=== PATIENT | male | born 1945 | race Caucasian/White ===

== ENCOUNTER 2016-12-27 10:43 | Day surgery (SDC) | payer MEDICARE, BC ==
[2016-12-24 08:28] VITALS: BMI 30.7
[~2016-12-27 10:43] MED LIST: LACTATED RINGERS 1,000 ML IV SCH; LIDOCAINE 1% 20 ML VIAL (10MG/ML) FOR IV START INTRADERMA PRN
[2016-12-27 11:18] VITALS: RESP 16
[2016-12-27] MEDS ORDERED: GLYCOPYRROLATE 0.2 MG/ML 2 ML VIAL ONE (11:49)
[2016-12-27] MEDS ORDERED: LIDOCAINE 1% INJ 10MG/ML (20 ML MDV) ONE (11:49)
[2016-12-27] MEDS ORDERED: PROPOFOL 10 MG/ML 20 ML VIAL IV ONE (11:49)
--- NOTE | 2016-12-27 12:22 | P.PCN ---
Date of Procedure: 12/27/16 Preoperative Diagnosis: Postoperative Diagnosis: Procedure(s) Performed: Procedure: Esophagogastroduodenoscopy and biopsy. Preoperative diagnosis: Reflux symptoms and history of Lim's esophagus. Postoperative diagnosis: 1. Moderately sized hiatal hernia with LA grade B distal esophagitis. 2. Lim's esophagus. 3. Minimal gastritis and duodenitis. 4. Biopsies obtained from the duodenum antrum and the Lim's segment. Preparation and sedation: Was provided by anesthesia. Brief clinical history: The patient is a 71-year-old male who I have evaluated in the office recently regarding heartburn and reflux symptoms. The patient has history of Lim's esophagus and his last evaluation was 2-3 years ago. He has no alarm symptoms. This evaluation is to assess for esophagitis and rule out other pathology and obtain a biopsies from the Lim's segment. Procedure: With the patient on his left lateral decubitus position and after informed consent and adequate sedation, I passed the Olympus-GIF 160 video upper endoscope through the cricopharyngeus down the esophagus. The branden-GE junction was around 34-35 cm from the incisors and there was short broad erosions distal to that level consistent with LA grade B distal esophagitis. There were no strictures. The endoscope was then passed through a 5 cm segment of Lim's esophagus. A moderately sized hiatal hernia was then encountered then the endoscope was advanced to the rest of the stomach which was insufflated with air and inspected in detail including the retroflex view in the cardia. There was minimal mottling and erythema in the antrum but no ulcers or erosions. Pyloric channel did not show any ulcers. Duodenal bulb, post bulbar area and descending duodenum showed mild erythema. I obtained biopsies from the duodenum, antrum and the Lim's segment of the esophagus then the endoscope was withdrawn. The patient tolerated the procedure well Plan: The patient was reassured. Will await biopsy results. He will continue with daily PPI which was recently prescribed and he will continue to follow antireflux diet and measures. Further plans based on his course and biopsy results. I will keep you updated on his progress. Implants: Indications for Procedure: Operative Findings: Description of Procedure:
[2016-12-27 12:52] VITALS: BP 111/70; PULSE 64
== END 2016-12-27 13:01 | disposition home or self-care (01) ==
LOC: ORWHC2ENDO 10:43
DX: K22.70 Barrett's esophagus without dysplasia (principal); K21.0 Gastro-esophageal reflux disease with esophagitis; K44.9 Diaphragmatic hernia without obstruction or gangrene; K29.70 Gastritis, unspecified, without bleeding; K29.80 Duodenitis without bleeding; I10 Essential (primary) hypertension; E78.5 Hyperlipidemia, unspecified; Z95.1 Presence of aortocoronary bypass graft; E07.9 Disorder of thyroid, unspecified; Z79.82 Long term (current) use of aspirin; Z79.899 Other long term (current) drug therapy
CPT/HCPCS: 88305; 88342; 43239; J2001; J2704

== ENCOUNTER → 2021-10-22 | Outpatient (CLI) | payer MEDICARE, BC ==
--- NOTE | 2021-10-23 07:12 | US ---
EXAMINATION TYPE: US kidneys/renal and bladder DATE OF EXAM: 10/22/2021 COMPARISON: NONE CLINICAL HISTORY: N28.1 RENAL CYST. Patient states having a hx of right renal cyst. EXAM MEASUREMENTS: Right Kidney: 11.4 x 5.0 x 5.6 cm Left Kidney: 10.9 x 5.0 x 4.8 cm Right Kidney: Lateral lower cystic lesion = 1.2 x 1.3 x 1.0 cm Left Kidney: No hydronephrosis or masses seen Bladder: Anechoic, distended Bilateral Jets seen There is no evidence for hydronephrosis at this point in time. No nephrolithiasis is seen. No solid masses are identified. The urinary bladder is anechoic. Bilateral ureteral jets are seen. IMPRESSION: Simple cyst right kidney.
== END | disposition home or self-care (01) ==
LOC: RADUSWWP 15:08
PROVIDERS: ATTEND Urology
DX: N28.1 Cyst of kidney, acquired (principal)
CPT/HCPCS: 76770

== ENCOUNTER → 2021-11-20 | Outpatient (CLI) | payer MEDICARE, BC ==
--- NOTE | 2021-11-20 14:39 | NM ---
EXAMINATION TYPE: NM bone scan whole body DATE OF EXAM: 11/20/2021 COMPARISON: NONE HISTORY: C 61 Delayed whole-body scanning was performed following the injection of 23.1 mCi Tc 99m MDP. Images acq uired 3 hours post injection. FINDINGS: Uptake within the feet, ankles, knees, hands and wrists, elbows, shoulders, costovertebral angles in the thoracic spine is likely degenerative. Uptake in the maxilla and mandible is likely due to period ontal disease. Soft tissue uptake is normal. No abnormal increased or decreased uptake to suggest met astatic disease. Uptake in the cervical spine, lumbar spine likely due to degenerative disc disease. IMPRESSION: Metastatic disease is not evident.
--- NOTE | 2021-11-21 16:20 | MR ---
EXAMINATION TYPE: MR Prostate wo/w con DATE OF EXAM: 11/20/2021 12:29 PM COMPARISON: Bone scan 11/20/2021. CLINICAL INDICATION:Male, 76 years old with history of C61 prostate ca; TECHNIQUE: Multi-planar, multi-sequence imaging of the pelvis is performed prior to and following the uncomplicated administration of bolus intravenous gadolinium. CONTRAST: 10 Gadavist Interpretive Criteria: PI-RADS v2.1 SERUM PSA: 13.1 on 09/06/2021. SURGICAL PATHOLOGY: Adenocarcinoma on multiple core biopsies A-K. FINDINGS: Prostatic dimensions (L-R x A-P x S-I): 5.2 x 3.3 x 4.2 cm. CENTRAL GLAND (Central and Transition Zones/CZ+TZ): Heterogenous appearing hypertrophic stromal nodules, without suspicious lesion. Median lobe hypertrop hy with protrusion into the base of the bladder. (PI-RADS 2) PERIPHERAL ZONE (PZ): Confluent low T2/high DWI signal predominantly in the left of the gland measuring 3.0 x 2.0 x 2.4 cm. Which extends along the capsule at least 1.7 cm with capsular bulging. No obvious extension outside the capsule. (PI-RADS 5) Additional area in the right peripheral zone apex measuring up to 1.2 x 1.2 x 0.9 cm extends along th e capsule at least 1.2 cm. No definitive extracapsular extension. (PI-RADS 4) Areas of intrinsic high T1 signal seen likely sequela prior biopsy. SEMINAL VESICLES (SV): Symmetric and unremarkable. PERIPROSTATIC TISSUES: Unremarkable. LYMPH NODES: No enlarged pelvic lymph node. REMAINING PELVIS: Bladder wall is within normal limits given distention. No abnormal free or organized intrapelvic fluid collection. No pathologic bowel dilation or mural thickening. Bilateral fat filled inguinal hernias. OSSEOUS STRUCTURES: Low T1 signal round area within the left superior pubic ramus measuring 7 mm. IMPRESSION: 1. PI-RADS 5 , 3.0 cm lesion involving the posterior peripheral zone predominantly in the left cross ing midline and extending along the capsule with capsular bulging. No definitive extension to the cap ericka. 2. PI-RADS 4 , 1.3 cm lesion right peripheral zone apex along the capsule. No obvious extracapsular extension. 3. Left superior pubic ramus focus of abnormal signal concerning for osseous metastatic disease. No obvious uptake on same day bone scan 11/20/2021. Follow-up imaging. 4. No lymphadenopathy.
== END | disposition home or self-care (01) ==
LOC: RADNMMAIN 09:42
PROVIDERS: ATTEND Radiology Radiation Oncology
DX: C61 Malignant neoplasm of prostate (principal)
CPT/HCPCS: 72197; 78306; A9503; A9585

== ENCOUNTER → 2021-11-25 | Outpatient (CLI) | payer MEDICARE, BC ==
--- NOTE | 2021-11-25 20:19 | CT ---
EXAMINATION TYPE: CT abdomen pelvis wo/w con CT DLP: 2148.8 mGycm, Automated exposure control for dose reduction was used. DATE OF EXAM: 11/25/2021 7:07 PM COMPARISON: MR prostate 11/20/2021. Bone scan 11/20/2021. CLINICAL INDICATION:Male, 76 years old with history of C61 PROSTATE CANCER; TECHNIQUE: Axial CT of the abdomen and pelvis. Sagittal and coronal reformats were created on a [employer] workstation. Contrast used:100ml mL of Isovue 300 with IV Contrast, Oral contrast used: with Oral Contrast FINDINGS: LOWER CHEST: Sternotomy wires are present. ABDOMEN LIVER: Unremarkable GALLBLADDER AND BILE DUCTS: The gallbladder is surgically absent. PANCREAS: Unremarkable. SPLEEN: Unremarkable. ADRENAL GLANDS: Unremarkable. KIDNEYS AND URETERS: No evidence of hydronephrosis or renal calculus. Right renal cyst. PELVIS BLADDER: Unremarkable REPRODUCTIVE: Prostate gland measures up to 4.8 cm in transverse dimension. No periprosthetic soft ti ssue mass. ABDOMEN & PELVIS STOMACH AND BOWEL: There is mild wall thickening of the stomach suggested posteriorly measuring up to 4.8 cm in thickness on sagittal series 11 image 82. Small moderate hiatal hernia. No evidence of bow el obstruction. Appendix is normal. PERITONEUM: No evidence of pneumoperitoneum or free fluid. VASCULATURE: No evidence of aortic aneurysm. Mild atherosclerosis changes of the arterial vasculature . MUSCULOSKELETAL: No suspicious osseous lesion. Focus of marrow abnormality on prostate exam 11/20/[address] correlate. No acute osseous abnormalities LYMPH NODES: No gross evidence for lymphadenopathy. SOFT TISSUE/ABDOMINAL WALL: Bilateral fat filled inguinal hernia. IMPRESSION: 1. No CT correlate for left superior pubic ramus marrow abnormality seen on 11/20/2021 MRI prostate. Attention on follow-up imaging. 2. Thickening of the gastric wall most pronounced posteriorly measuring up to 4.8 cm. Further evaluat ion is recommended along with direct visualization differential includes malignancy and gastritis. 3. Small hiatal hernia.
== END | disposition home or self-care (01) ==
LOC: RADCTMAIN 16:59
PROVIDERS: ATTEND Radiology Radiation Oncology
DX: C61 Malignant neoplasm of prostate (principal)
CPT/HCPCS: 82565; 84520; 74178; 36415; Q9967

== ENCOUNTER → 2021-12-02 | Outpatient (CLI) | payer MEDICARE, BC ==
[2021-12-02 14:57] LABS: Basophils # (A) 0.05 X 10*3/uL (0.00-0.10); Basophils % (A) 0.9 %; Eosinophils # (A) 0.48 X 10*3/uL (0.04-0.35); Eosinophils % (A) 8.8 %; HCT 45.6 % (39.6-50.0); HGB 15.7 g/dL (13.0-17.0); Immature Grans, Automated 0.2 %; Lymphocytes # (A) 1.47 X 10*3/uL (0.90-5.00); Lymphocytes % (A) 26.9 %; MCH 31.6 pg (27.0-32.0); MCHC 34.4 g/dL (32.0-37.0); MCV 91.8 fL (80.0-97.0); Mean Platelet Volume 12.3 fL (9.5-12.2); Monocytes # (A) 0.45 X 10*3/uL (0.20-1.00); Monocytes % (A) 8.2 %; NRBC Per 100 WBC 0 /100 WBCS (0.0-0.0); Platelet Count 133 X 10*3/uL (140-440); RBC 4.97 X 10*6/uL (4.40-5.60); RDW 13.1 % (11.5-14.5); WBC 5.46 X 10*3/uL (4.50-10.00)
[2021-12-02 15:08] LABS: Anion Gap 8.3 mmol/L (10.00-18.00); BUN/Creat Ratio 16.54 Ratio (12.00-20.00); Blood Urea Nitrogen 17.2 mg/dL (9.0-27.0); Calcium 9.4 mg/dL (8.7-10.3); Carbon Dioxide 28.5 mmol/L (20.0-27.5); Non-African American GFR(CKD) 69.9 (60.0-200.0); Potassium 4.4 mmol/L (3.5-5.5)
[2021-12-02 17:12] LABS: Appearance,Urine Clear (Clear); Bilirubin,Urine Negative (Negative); Blood,Urine Negative (Negative); Color,Urine Yellow (Yellow); Ketones,Urine Negative (Negative); Nitrite,Urine Negative (Negative); PH, Urine 5.5 (5.0-8.0); Specific Gravity,Urine 1.005 (1.001-1.030); Urobilinogen,Urine 0.2 (0.2,1.0)
== END | disposition home or self-care (01) ==
LOC: LABPAT 10:16
PROVIDERS: ATTEND Urology
DX: Z01.812 Encounter for preprocedural laboratory examination (principal); C61 Malignant neoplasm of prostate
CPT/HCPCS: 80048; 81003; 85025; 87086

== ENCOUNTER 2024-05-23 07:53 | Day surgery (SDC) | payer MEDICARE, BC, OTHER ==
[2024-05-21 10:35] VITALS: BMI 27.8
[2024-05-23 08:22] VITALS: TEMP 97.2
[2024-05-23] MEDS: IV FLUID CONTINUATION 1,000 ML IV ONE (08:23)
[2024-05-23] MEDS: LACTATED RINGERS 1,000 ML BAG IV STA (08:29)
[2024-05-23] MEDS ORDERED: PROPOFOL 10 MG/ML 20 ML VIAL IV ONE (08:56)
[2024-05-23] MEDS ORDERED: LIDOCAINE 1% INJ 10MG/ML (20 ML MDV) ONE (08:56)
--- NOTE | 2024-05-23 09:20 | P.PCN ---
Date of Procedure: 05/23/24 Procedure(s) Performed: BRIEF HISTORY: Patient is a 79-year-old, pleasant, white female scheduled for an upper endoscopy as a part of evaluation of longstanding history of GERD and Lim's esophagus.. Last EGD was in 2017. She has been on omeprazole 20 mg daily. PROCEDURE PERFORMED: Esophagogastroduodenoscopy with biopsy. PREOPERATIVE DIAGNOSIS: Longstanding history of GERD/Lim's esophagus. IV sedation per anesthesia. PROCEDURE: After informed consent was obtained, the patient was brought into the endoscopy unit. IV sedation was administered by Anesthesia under continuous monitoring. Initially the Olympus GIF-140 video endoscope was inserted into the mouth. Esophagus intubated without any difficulty. It was gradually advanced into the stomach and duodenum and carefully examined. The bulb and the second part of the duodenum appeared normal. The scope at this time was withdrawn to t he stomach, adequately insufflated with air, and upon careful examination, mucosa of the antrum, body, cardia and the fundus appeared normal. The scope was then withdrawn into the esophagus. Moderate sized hiatal hernia. The GE junction was located at 35 cm from the incisors. This is a long segment of Lim's esophagus extending from 25 to 35 cm from the incisors and multiple biopsies were done from this area. The rest of the esophagus appeared normal. There were no erosions or ulcerations seen and the patient tolerated the procedure well. IMPRESSION: 1. Long segment Lim's esophagus extending from 25 to 35 cm from the incisors status post multiple biopsies. 2. Moderate size hiatal hernia. RECOMMENDATIONS: The findings of this examination were discussed with the patient as well as his family. He was advised to follow with the biopsy results. Continue with omeprazole 20 mg twice daily and follow antireflux measures. If the biopsy does not show any evidence of dysplasia he can have repeat upper endoscopy in 3 years.
[2024-05-23 09:41] VITALS: BP 146/81; PULSE 61; RESP 18
== END 2024-05-23 10:00 | disposition home or self-care (01) ==
LOC: ORWHC2ENDO 07:53
PROVIDERS: ATTEND Internal Medicine Gastroenterology
DX: K22.70 Barrett's esophagus without dysplasia (principal); K21.9 Gastro-esophageal reflux disease without esophagitis; K44.9 Diaphragmatic hernia without obstruction or gangrene; I10 Essential (primary) hypertension; E78.5 Hyperlipidemia, unspecified; E07.9 Disorder of thyroid, unspecified; M19.90 Unspecified osteoarthritis, unspecified site; C61 Malignant neoplasm of prostate; M10.9 Gout, unspecified; Z87.19 Personal history of other diseases of the digestive system; Z89.119 Acquired absence of unspecified hand; Z79.890 Hormone replacement therapy; Z79.899 Other long term (current) drug therapy
CPT/HCPCS: 88305; 43239; J2003; J2704